=== PATIENT | female | born 1950 | race Caucasian/White ===

== ENCOUNTER 2017-08-17 06:36 | Day surgery (SDC) | payer OTHER ==
[~2017-08-17 06:36] MED LIST: COUMADIN7.5 MG; NEURONTIN300 MG PO; ZYRTEC
== END 2017-08-17 10:40 | disposition home or self-care (01) ==
LOC: AMB-ENDOS 06:36 → CIR.AMB 11:30 → AMB-ENDOS 11:30
DX: K64.2 Third degree hemorrhoids (principal)

== ENCOUNTER 2020-10-13 08:13 | Outpatient (CLI) | payer OTHER | END 2020-10-13 08:20 | disposition home or self-care (01) | LOC: RX STUDY 08:13 | PROVIDERS: ATTEND Colon & Rectal Surgery | DX: K57.32 Diverticulitis of large intestine without perforation or abscess without bleeding (principal); K92.1 Melena; Z12.11 Encounter for screening for malignant neoplasm of colon; K56.699 Other intestinal obstruction unspecified as to partial versus complete obstruction ==

== ENCOUNTER → 2020-11-01 08:00 | Outpatient (CLI) | payer OTHER | END | disposition home or self-care (01) | LOC: LAB 08:00 → ADM 13:15 → AMB-ENDOS 11-05 13:15 → EDSTATUS 11-05 13:15 | PROVIDERS: ATTEND Colon & Rectal Surgery | DX: Z03.818 Encounter for observation for suspected exposure to other biological agents ruled out (principal); K57.32 Diverticulitis of large intestine without perforation or abscess without bleeding; K92.1 Melena; Z12.11 Encounter for screening for malignant neoplasm of colon ==

== ENCOUNTER 2020-12-17 06:42 | Day surgery (SDC) | payer OTHER | END 2020-12-17 10:10 | disposition home or self-care (01) | LOC: AMB-ENDOS 06:42 | PROVIDERS: ATTEND Colon & Rectal Surgery | DX: K57.32 Diverticulitis of large intestine without perforation or abscess without bleeding (principal); K64.0 First degree hemorrhoids; Z20.822 Contact with and (suspected) exposure to COVID-19; Z12.11 Encounter for screening for malignant neoplasm of colon ==